=== PATIENT | female | born 1955 | race Caucasian/White ===

== ENCOUNTER 2017-08-20 05:20 | Observation (INO) | payer MEDICARE ==
[~2017-08-20] VITALS: Ht 175.3 cm; Wt 68.2 kg
[~2017-08-20 05:20] MED LIST: CEPH500 PO; CeFAZolin 2 GM/DEXTROSE 50 ML IV ONE; DOXE100 PO; IBUP-2354 PO; PERCT10 PO; RINGERS SOLUTION,LACTATED 1,000 ML IV ONE
[2017-08-20] MEDS ORDERED: RINGERS SOLUTION,LACTATED 1,000 ML IV ONE (05:30)
[2017-08-20] MEDS ORDERED: GUM MASTIC/STORAX/MSAL/ALCOHOL LIQUID 0.67 ML VIAL TP ONE (05:34)
[2017-08-20] MEDS ORDERED: VANCOMYCIN HCL 1 GM/VIAL ONE (05:34)
[2017-08-20] MEDS ORDERED: BUPIVACAINE HCL/PF 0.5% 30 ML VIAL ONE (05:34)
[2017-08-20] MEDS ORDERED: BUPIVACAINE LIPOSOME/PF 1.3%-13.3MG/ML SUSPENSION 10 ML VIAL INJ ONE ×2 (06:00→06:15)
[2017-08-20] MEDS ORDERED: FentaNYL CITRATE-PF 100 MCG/2 ML VIAL IVP PRN (06:00)
[2017-08-20] MEDS ORDERED: PROMETHAZINE HCL 25 MG/ML VIAL IM PRN (06:00)
[2017-08-20] MEDS ORDERED: ONDANSETRON HCL 4 MG/2 ML VIAL IVP PRN ×4 (06:00→21:45)
[2017-08-20] MEDS ORDERED: CYCLOBENZAPRINE HCL 10 MG TABLET PO PRN (06:00)
[2017-08-20] MEDS ORDERED: HYDROmorphone 2 MG/ML SYRINGE IVP PRN (06:00)
[2017-08-20] MEDS ORDERED: MEPERIDINE-PF 25 MG/ML SYRINGE IVP PRN (06:00)
[2017-08-20] MEDS ORDERED: ACETAMINOPHEN 1000 MG/ISO-OSM 100 ML IV ONE (06:01)
[2017-08-20] MEDS: ACETAMINOPHEN 1000 MG/ISO-OSM 100 ML IV SCH ×2 (06:11→12:00)
[2017-08-20 06:13] LABS: BASOPHILS % (AUTO) 0.4 % (0.0-2.0); EOSINOPHILS % (AUTO) 0.9 % (1.0-6.0); HEMATOCRIT 32.3 % (36-46); HEMOGLOBIN 10.8 g/dL (12.0-16.0); LYMPHOCYTES # (AUTO) 2.1 K/uL (1.0-4.8); LYMPHOCYTES % (AUTO) 13.4 % (22.0-44.0); MEAN CORPUSCULAR HEMOGLOBIN 29.5 pg (26.0-34.0); MEAN CORPUSCULAR HGB CONC 33.5 G/dL (31.0-37.0); MEAN CORPUSCULAR VOLUME 88 fL (80-100); MONOCYTES # (AUTO) 0.7 K/uL (0.1-1.0); MONOCYTES % (AUTO) 4.3 % (2.0-9.0); NEUTROPHILS # (AUTO) 12.9 K/uL (1.8-7.7); PLATELET COUNT (AUTO) 411 K/uL (150-450); RED BLOOD CELL COUNT(AUTO) 3.67 MIL/uL (4.00-5.20); RED CELL DISTRIBUTION WIDTH 16.3 % (11.5-14.5)
[2017-08-20 06:23] LABS: ANION GAP 9 mmol/L (8-16); CALCIUM, TOTAL 9.3 mg/dL (8.8-10.5); CARBON DIOXIDE 27 mmol/L (22-29); CHLORIDE 94 mmol/L (98-107); CREATININE 0.92 mg/dL (0.60-1.30); GLOMERULAR FILTR. RATE CALC > 60 mL/min (>60); GLUCOSE,RANDOM 108 mg/dL (70-110); POTASSIUM 4.6 mmol/L (3.5-5.1); SODIUM SERUM 130 mmol/L (136-145); UREA NITROGEN, BLOOD 9 mg/dL (7-18)
[2017-08-20 06:26] LABS: PROTHROMBIN TIME 10.6 SEC (9.4-11.6)
[2017-08-20 06:29] LABS: ALANINE AMINOTRANSFERASE 16 U/L (12-78); ALBUMIN 3.6 g/dL (3.4-5.0); ALKALINE PHOSPHATASE 77 U/L (46-116); ASPARTATE AMINOTRANSFERASE 12 U/L (15-37); BILIRUBIN,TOTAL 0.2 mg/dL (0.1-1.0); TOTAL PROTEIN, SERUM 7.3 g/dL (6.4-8.2)
[2017-08-20] MEDS ORDERED: ZOLPIDEM TARTRATE 10 MG TABLET PO PRN ×2 (07:00)
[2017-08-20] MEDS ORDERED: BENZOCAINE/MENTHOL LOZENGE [8 LOZENGES/PACKET] PO PRN ×2 (07:00)
[2017-08-20] MEDS ORDERED: DiphenhydrAMINE HCL 50 MG/ML VIAL IVP PRN ×2 (07:00)
[2017-08-20] MEDS ORDERED: PROMETHAZINE HCL 12.5 MG in SODIUM CHLORIDE 0.9% 50 ML IV PRN (07:00)
[2017-08-20] MEDS ORDERED: MAG HYDROX/AL HYDROX/SIMETH 30 ML SUSP UDCUP PO PRN (07:00)
[2017-08-20] MEDS ORDERED: OXYGEN THERAPY IH SCH (08:00)
[2017-08-20] MEDS ORDERED: DOCUSATE SODIUM 100 MG CAPSULE PO SCH ×2 (09:00)
[2017-08-20] MEDS: HYDROmorphone 2 MG/ML SYRINGE IVP PRN ×2 (09:55→13:34)
[2017-08-20 11:47] VITALS: BP 117/72
[2017-08-20] MEDS ORDERED: PERCT10 PO ×2 (15:26→15:38)
[2017-08-20 15:56] VITALS: BP 107/69
[2017-08-20] MEDS ORDERED: EPHEDrine SULFATE 50 MG/ML VIAL IM ONE (16:14)
[2017-08-20] MEDS ORDERED: LIDOCAINE HCL/PF 2% 5 ML VIAL IM ONE (16:14)
[2017-08-20] MEDS ORDERED: SUCCINYLCHOLINE CHLORIDE 20 MG/ML 10 ML VIAL IVP ONE (16:14)
[2017-08-20] MEDS ORDERED: PROPOFOL 1% 20 ML VIAL IVP ONE (16:14)
[2017-08-20] MEDS ORDERED: PHENYLEPHRINE HCL 10 MG/ML VIAL IVP ONE (16:14)
[2017-08-20] MEDS ORDERED: FentaNYL CITRATE-PF 100 MCG/2 ML VIAL IVP ONE (16:14)
[2017-08-20] MEDS ORDERED: ONDANSETRON HCL 4 MG/2 ML VIAL IVP ONE (16:14)
[2017-08-20] MEDS ORDERED: VECURONIUM BROMIDE 10 MG/VIAL IVP ONE (16:14)
[2017-08-20] MEDS ORDERED: MIDAZOLAM HCL 2 MG/2 ML VIAL IVP ONE (16:14)
[2017-08-20] MEDS ORDERED: ALBUTEROL SULFATE 2.5 MG/0.5 ML NEB SOLUTION NEB PRN (21:45)
[2017-08-20] MEDS ORDERED: IPRATROPIUM BROMIDE 0.5 MG/2.5 ML NEB SOLUTION NEB PRN (21:45)
[2017-08-20] MEDS ORDERED: ZOLPIDEM TARTRATE 5 MG TABLET PO PRN (21:45)
[2017-08-20] MEDS ORDERED: ACETAMINOPHEN 325 MG TABLET PO PRN (21:45)
[2017-08-20] MEDS ORDERED: MAGNESIUM HYDROXIDE SUSPENSION 30 ML UDCUP PO PRN (21:45)
[2017-08-20] MEDS ORDERED: BISACODYL 10 MG RECTAL RECTAL SUPPOSITORY PR PRN (21:45)
[2017-08-21] MEDS ORDERED: HEPARIN SODIUM,PORCINE 5,000 UNITS/ML VIAL SQ SCH
[2017-08-21] MEDS ORDERED: OxyCODONE HCL/ACETAMINOPHEN 10-325 MG TABLET PO PRN (06:00)
[2017-08-21] MEDS ORDERED: DOCUSATE SODIUM 100 MG CAPSULE PO SCH (09:00)
[2017-08-21] MEDS ORDERED: PANTOPRAZOLE SODIUM 40 MG/VIAL IVP SCH (09:00)
== END 2017-08-20 16:15 | disposition home or self-care (01) ==
LOC: SURGERY 05:20 → 6N 05:21 → EDSTATUS 06:30 → UNDODISOB 16:15
PROVIDERS: ADMIT Orthopaedic Surgery Orthopaedic Surgery of the Spine; ATTEND Orthopaedic Surgery Orthopaedic Surgery of the Spine
DX: M48.061 Spinal stenosis, lumbar region without neurogenic claudication (principal); M54.2 Cervicalgia; E11.9 Type 2 diabetes mellitus without complications
CPT/HCPCS: 36415; 63005; 80053; 85025; 85610; 85730; 87081; 93005; 96374; 96376; 97162; 97165; 97530; G0378; J0131; J0330; J0690; J1170; J2250; J2370; J2405; J2704; J3010; J3370; J3490 ×4; J7120; Z7610